=== PATIENT | female | born 1990 | race Caucasian/White ===

== ENCOUNTER 2016-11-15 15:20 | Emergency (ER) | payer BC ==
[~2016-11-15] VITALS: Ht 162.6 cm; Wt 61.2 kg
[2016-11-15 15:26] VITALS: TEMP 36.7
[2016-11-15] MEDS ORDERED: ALBUT/IPRATROP 3MG/0.5MG NEB 3 ML VIAL INH STA (15:45)
[2016-11-15] MEDS ORDERED: SODIUM CHLORIDE 0.9% 1000ML 1,000 ML IV STA (15:45)
[2016-11-15] MEDS ORDERED: METHYLPREDNISOLONE 125 MG VIAL IV STA (15:45)
[2016-11-15 16:00] VITALS: Ht 162.6 cm; Wt 61.2 kg
[2016-11-15 16:21] LABS: BASO % 0.2 %; BASO ABS # 0.02 K/uL (0-0.2); COMPLETE YES; EOS % 1.5 %; HEMATOCRIT 39.8 % (37-47); IG% 0.1 %; LYMPH % 16.1 %; LYMPH ABS # 1.66 K/uL (1.2-3.4); MEAN CELL VOLUME 90.9 fL (80-100); MEAN CORPUSCULAR HEMOGLOBIN 31.1 pg (25-34); MEAN CORPUSCULAR HGB CONC 34.2 g/dl (32-36); MEAN PLATELET VOLUME 8.9 fL (7.4-10.4); MONO % 5.1 %; PLATELET COUNT 285 K/uL (130-400); RED BLOOD COUNT 4.38 M/uL (4.2-5.4); WHITE BLOOD COUNT 10.33 K/uL (4.8-10.8)
[2016-11-15 16:32] LABS: URINE APPEARANCE CLEAR (CLEAR); URINE BILIRUBIN NEG (NEG); URINE COLOR YELLOW; URINE NITRITE NEG (NEG); URINE PH 5.5 (4.5-7.5); URINE SPECIFIC GRAVITY 1.011 (1.000-1.030); UROBILINOGEN NEG (NEG)
[2016-11-15 16:38] LABS: ALT/SGPT 18 U/L (12-78); AST/SGOT 11 U/L (15-37); BLOOD UREA NITROGEN 7 mg/dl (7-18); BUN/CREATININE RATIO 9.5 (10-20); CALCIUM 8.9 mg/dl (8.5-10.1); CARBON DIOXIDE 28 mmol/L (21-32); CHLORIDE 110 mmol/L (98-107); CREATININE 0.78 mg/dl (0.60-1.20); GLUCOSE 106 mg/dl (70-99); POTASSIUM 3.7 mmol/L (3.5-5.1); SODIUM 142 mmol/L (136-145)
[2016-11-15 16:43] LABS: ALB/GLOB RATIO 1.2 (0.9-2); ALKALINE PHOSPHATASE 46 U/L (45-117); CKMB/CK RATIO 0.8 (0-3.0)
--- NOTE | 2016-11-15 16:43 | DIAGNOSTIC IMAGING REPORT ---
TWO VIEW CHEST CLINICAL HISTORY: Dyspnea. FINDINGS: PA and lateral chest radiographs are obtained. No prior studies are available for comparison at the time of dictation. The cardiomediastinal silhouette is unremarkable. The lungs and pleural spaces are clear. There is no pneumothorax. The bony thorax appears intact. IMPRESSION: No active disease in the chest. Electronically signed by: Rambo Villalba M.D. 11/15/2016 4:42 PM Dictated Date/Time: 11/15/2016 4:42 PM
[2016-11-15 16:47] LABS: MANUAL MICROSCOPIC REQUIRED? NO; PREG INTERNAL NEGATIVE QC NEG CLEAR BACKGROUND; PREG INTERNAL POSITIVE QC POS CONTROL LINE; REVIEW REQ? NO
[2016-11-15] MEDS ORDERED: PRED20TA2 PO (17:06)
[2016-11-15] MEDS ORDERED: VNTHFA/IN INH (17:06)
[2016-11-15] MEDS ORDERED: BENZ100C18 PO (17:06)
[2016-11-15 17:20] VITALS: BP 103/52; PULSE 78; O2SAT 100
--- NOTE | 2016-11-16 00:22 | EMERGENCY ROOM VISIT NOTE ---
ED Visit Note First contact with patient: 15:32 Chief Complaint: Shortness of breath and chest tightness. History of Present Illness: Ms. Coronado is a 26-year-old white female who ambulates into the ED complaining of shortness of breath and chest tightness. Historically patient reports she has a history of childhood asthma which has not been treated in years. Patient reports her symptoms started approximately 2-3 weeks ago with a cough. Since that time her cough has been ongoing and has increased in intensity. Over the last 2-3 days she reports she has been getting a sensation of chest tightness and bilateral rib pain with her cough. Her rib pain is predominantly on the left. She describes the rib pain as a sharp sensation and rates her discomfort 7/10. The chest tightness her rib pain is nonradiating. Her pain worsens with cough and AP compression of the chest. She has not taken any medication for her symptoms prior to arrival at the hospital. Associated with her symptoms she reports she has a mild sensation of fullness in both ears. She denies fevers, chills, sweats, skin eruptions, skin color changes, dizziness , lightheadedness, hearing changes, ear drainage, sore throat, difficulty speaking, difficulty swallowing, neck pain/stiffness, wheezing, hemoptysis, upper dictations, orthopnea, dependent edema, previous clots, claudication, cramping, recent surgery/inactivity/extended travel, estrogen and tobacco use, abdominal pain, nausea, vomiting. Review of Systems: As noted above in history of present illness. All body systems were reviewed and found to be negative as noted above. Past Medical History: As previously noted Current Medications: Patient denies. Allergies to Medications: Patient denies. Social History: Patient is currently employed; she feels safe in her home environment; she denies tobacco use. Physical Examination: Vital Signs: Date Time Temp Pulse Resp B/P (MAP) Pulse Ox O2 Delivery O2 Flow Rate FiO2 11/15/16 17:20 78 18 103/52 100 11/15/16 16:24 87 11/15/16 15:36 97 Room Air 11/15/16 15:26 36.7 103 18 150/78 100 Room Air GENERAL: 26-year-old female in mild distress due to symptoms, nontoxic-appearing , afebrile and hemodynamically stable. NEUROLOGICAL: Awake, alert and oriented to person, place and time. Answering questions appropriately and following commands. Normal gait. Good hand eye coordination. No focal motor sensory deficits. SKIN: Warm, dry and pink. No soft tissue eruptions or trauma noted. HEENT: Atraumatic and normocephalic. No tenderness or erythema over the frontal or maxillary sinuses. No external ear tenderness. Auditory canals are pink and patent. Tympanic membranes are pearly sheriff with normal light reflex; no erythema or edema. PERRLA. Sclera white and conjunctiva pink without drainage. No drainage from naris. Oral cavity moist and pink. Airway patent. Pharynx is nonerythematous or edematous. No tonsillar hypertrophy or exudates. Speech normal. No lymphadenopathy. Trachea midline. No jugular venous distention. No carotid bruits. BACK: No tenderness over the bony cervical, thoracic and lumbar spine. No CVA tenderness. THORAX: Lungs sounds are clear to auscultation and significantly reduced bilaterally. Equal bilaterally with symmetrical chest wall. No wheezing, rales or rhonchi. Mild tenderness with AP compression and no tenderness with lateral compression. No bony deformity, bony crepitus, swelling, ecchymosis or subcutaneous air. HEART: Regular rate and rhythm. No gallops, rubs or murmurs are appreciated. PMI is not displaced. No lifts, heaves or thrills. ABDOMEN: Flat, soft and nontender. Positive bowel sounds in all quadrants. No guarding, rigidity or organomegaly. EXTREMITIES: Moves all extremities well on command and with purpose. All distal neurovascular statuses are intact and equal bilaterally. No calf tenderness or cords. ED Course: Patient is assessed as noted above. Patient's medication list was reviewed. Laboratory Testing: Test 11/15/16 16:00 Range/Units White Blood Count 10.33 4.8-10.8 K/uL Red Blood Count 4.38 4.2-5.4 M/uL Hemoglobin 13.6 12.0-16.0 g/dL Hematocrit 39.8 37-47 % Mean Corpuscular Volume 90.9 80-100 fL Mean Corpuscular Hemoglobin 31.1 25-34 pg Mean Corpuscular Hemoglobin Concent 34.2 32-36 g/dl Platelet Count 285 130-400 K/uL Mean Platelet Volume 8.9 7.4-10.4 fL Neutrophils (%) (Auto) 77.0 % Lymphocytes (%) (Auto) 16.1 % Monocytes (%) (Auto) 5.1 % Eosinophils (%) (Auto) 1.5 % Basophils (%) (Auto) 0.2 % Neutrophils # (Auto) 7.95 1.4-6.5 K/uL Lymphocytes # (Auto) 1.66 1.2-3.4 K/uL Monocytes # (Auto) 0.53 0.11-0.59 K/uL Eosinophils # (Auto) 0.16 0-0.5 K/uL Basophils # (Auto) 0.02 0-0.2 K/uL RDW Standard Deviation 42.9 36.4-46.3 fL RDW Coefficient of Variation 12.8 11.5-14.5 % Immature Granulocyte % (Auto) 0.1 % Immature Granulocyte # (Auto) 0.01 0.00-0.02 K/uL Urine Color YELLOW Urine Appearance CLEAR CLEAR Urine pH 5.5 4.5-7.5 Urine Specific [place] 1.011 1.000-1.030 Urine Protein NEG NEG Urine Glucose (UA) NEG NEG Urine Ketones NEG NEG Urine Occult Blood 2+ NEG Urine Nitrite NEG NEG Urine Bilirubin NEG NEG Urine Urobilinogen NEG NEG Urine Leukocyte Esterase NEG NEG Urine WBC (Auto) 0 0-5 /hpf Urine RBC (Auto) 0-4 0-4 /hpf Urine Hyaline Casts (Auto) 0 0-5 /lpf Urine Epithelial Cells (Auto) 5-10 0-5 /lpf Urine Bacteria (Auto) NEG NEG Sodium Level 142 136-145 mmol/L Potassium Level 3.7 3.5-5.1 mmol/L Chloride Level 110 98-107 mmol/L Carbon Dioxide Level 28 21-32 mmol/L Anion Gap 4.0 3-11 mmol/L Blood Urea Nitrogen 7 7-18 mg/dl Creatinine 0.78 0.60-1.20 mg/dl Est Creatinine Clear Calc Drug Dose 96.1 ml/min Estimated GFR () 123.3 Estimated GFR (Non- 106.4 BUN/Creatinine Ratio 9.5 10-20 Random Glucose 106 70-99 mg/dl Calcium Level 8.9 8.5-10.1 mg/dl Total Bilirubin 0.4 0.2-1 mg/dl Aspartate Amino Transf (AST/SGOT) 11 15-37 U/L Alanine Aminotransferase (ALT/SGPT) 18 12-78 U/L Alkaline Phosphatase 46 45-117 U/L Total Creatine Kinase 92 26-192 U/L Creatine Kinase MB 0.7 0.5-3.6 ng/ml Creatine Kinase MB Ratio 0.8 0-3.0 Troponin I < 0.015 0-0.045 ng/ml Total Protein 7.5 6.4-8.2 gm/dl Albumin 4.1 3.4-5.0 gm/dl Globulin 3.4 2.5-4.0 gm/dl Albumin/Globulin Ratio 1.2 0.9-2 Human Chorionic Gonadotropin, Qual NEG NEG Chest X-Rays: Was read by myself and the radiologist showing no acute infiltrates, effusions or pneumothorax. Normal heart silhouette and bony anatomy. There did appear to be mild bronchial inflammation predominantly on her lateral chest. No previous x-rays to compare. EKG: Was read by myself and reviewed with Dr. Lugo; shows a sinus rhythm with sinus arrhythmia. Ventricular rate 81 bpm. No acute EKG changes indicating ischemia or injury. Medical records were reviewed and no previous EKGs were on file. Patient was hydrated with normal saline and she received an albuterol/Atrovent nebulizer breathing treatment, and 125 mg of Solu-Medrol IV. Patient was reassessed multiple times during her stay in the emergency department. After her nebulizer breathing treatment I did reassess her lungs and she had marked improvement in air movement. She continued to have no wheezing, rales or rhonchi. Patient's case was reviewed with Dr. Ryan; we agreed on diagnostic approach, treatment, disposition and plan. Patient was educated about today's findings and instructed on her treatment plan ; she verbalizes understanding and agreement with this plan. Clinical Impression: Acute bronchitis. Decision-Making: Initially my differential diagnosis I considered bronchitis, pneumonia, pulmonary embolism, acute coronary syndrome, thoracic aneurysm, pneumothorax, musculoskeletal disorder, rhabdomyolysis and other causes. Disposition: Patient discharged home in stable condition; prior to departure she was reassessed and subjectively reported she was feeling much better and was no longer short of breath but reported that she had residual left lateral rib pain with deep inspiration and cough. Plan: Patient was prescribed albuterol, Tessalon Perles and prednisone and instructed on their use and dosing. Patient was encouraged to alternate ibuprofen and acetaminophen as needed for pain. Patient was encouraged to avoid tobacco use. Patient was encouraged to follow-up with PCP for recheck in 3-4 days. Patient was encouraged return to the ED for worsening cough, worsening shortness of breath, worsening chest discomfort, coughing up blood, fevers or any new/concerning symptoms.
== END 2016-11-15 17:22 | disposition home or self-care (01) ==
LOC: C.EDB 15:24 → C.EDA 17:22
DX: J20.9 Acute bronchitis, unspecified (principal)